=== PATIENT | female | born 1980 | race Caucasian/White ===

== ENCOUNTER 2024-08-11 16:22 | Emergency (ER) | payer OTHER, SELFPAY ==
[2024-08-11 16:28] VITALS: BP 98/70
--- NOTE | 2024-08-11 17:48 | ED.GENMED ---
History of Present Illness
General
Chief Complaint: Musculo-Skeletal Complaint
Source: patient
Exam Limitations: none
Time Seen by Provider: 08/11/24 17:45
Nursing documentation reviewed up to this point in time: agreed with
History of Present Illness
History of Present Illness:
This is a 43 y/o female with past medical history of psoriatic arthritis presents emergency department with left arm pain left shoulder pain. Patient states that she is not able to fully to her left shoulder without significant pain. She also
feels generalized pain in her left arm. She denies any chest pain or shortness of breath. She states that she has had similar pain in the past but is gone away on its own. She also notes right knee pain. Patient denies any difficulty ambulating,
denies any weakness. Patient states she took Advil at home with minimal improvement. Patient states that she has a follow-up with her sausage machine operator next week. Patient denies any rashes over the left arm or left shoulder. Patient denies any
fevers or chills. Patient did not fall, patient has no trauma to the area
Past History
Past History
ED Past Medical History: None
ED Past Surgical History: None
Social History
Tobacco: Non-smoker
Personal: Single
Living: with roommate
Employment: Employed
Review of Systems
Review of Systems
All Other Systems: ROS reviewed and negative except as documented in HPI and ROS
Phy Exam
Physical Exam
Physical Exam:
General: Patient is well appearing and in no acute distress; non-toxic
Skin: Warm and dry, no rashes or lesions
Head: Normocephalic, atraumatic
Eyes: Sclera non-icteric. EOMs intact.
Cardiac: Regular rate and rhythm, no murmurs
Peripheral Vascular: No lower extremity swelling or swelling
Pulm: Normal respiratory effort
Musculoskeletal: Tenderness palpation of the left biceps and left triceps. No palpable mass to the left upper extremity. Pain in shoulder with passive range of motion
Neuro: CN II-XII intact, no focal neurologic deficits.
Psychiatric: Appropriate mood and affect.
Course
Orders/Labs/Results
Orders:
Orders
08/11/24 16:34
CR Knee- Right 4 Or More View* Urgent
Comment:
Reason For Exam: pain
CR Shoulder - Left Min 2 View* Urgent
Reason For Exam: pain
08/11/24 18:44
Electrocardiogram (*1) Urgent
Reason for Study: Other
Other Reason for Exam: left shoulder pain
EKG- Treatment ONCE
Vital Signs
Initial and Last Documented VS:
Initial Vital Signs
Temp Pulse Resp BP Pulse Ox
98.4 F 94 18 98/70 100
08/11/24 16:28 08/11/24 16:28 08/11/24 16:28 08/11/24 16:28 08/11/24 16:28
Last Documented Vital Signs
Temp Pulse Resp BP Pulse Ox
98.4 F 94 18 98/70 100
08/11/24 16:28 08/11/24 16:28 08/11/24 16:28 08/11/24 16:28 08/11/24 16:28
MDM/Problems Addressed
Differential Diagnosis Includes:
See below
MDM/Problems Addressed:
NUMBER AND COMPLEXITY OF PROBLEMS ADDRESSED AT THE ENCOUNTER
� Chronic conditions affecting care: none
� Acute Exacerbation and/or Progression of Chronic Illness:
� Differential Diagnosis includes: Flare of psoriatic arthritis, ACS, musculoskeletal sprain/strain
AMOUNT AND/OR COMPLEXITY OF DATA TO BE REVIEWED AND ANALYZED
� I performed an independent evaluation of and my interpretation is:
EKG: normal sinus rhythm no ischemic changes
X-rays: No acute bony abnormalities
Laboratory Studies: no lab work indicated at this time
Other:
� Review of other/old records: Reviewed previous ER physician documentation from 10/18/2018, patient seen for back pain, likely overuse injury
� Clinical information was obtained by an independent historian: none
� Prescriptions/Medications Considered but not given: none
� Further testing considered but not performed:
RISK OF COMPLICATIONS AND/OR MORBIDITY OR MORTALITY OF PATIENT MANAGEMENT
� Social determinants of health affecting care: none
� Discussion with other providers: ER attending
� Escalation of care including admission/observation vs risk of discharge considered:
43-year-old female with past medical history of psoriatic arthritis presents emergency department with left upper extremity pain. She denies any chest pain or shortness of breath. X-rays reveal no acute bony abnormality. Suspect possible flare of
psoriatic arthritis, will put patient on a short course of steroids, patient has a follow-up appoint with her prior sausage machine operator next week, I discussed that she should be reassessed next week. Patient has no chest pain however in light of left
upper extremity pain, did get the EKG which shows no concerning ischemic changes, will hold off on Trope for now. Did review case with my ER attending, patient stable for discharge.
*Critical Care Note
Total Time (30-74mins, 75-104mins- exclusive of procedures): Not Applicable
ED Attending Note
-
Portions of this chart may have been created with voice recognition software.� Occasional wrong word or��sound alike� substitutions may have occurred due to the inherent limitations of voice recognition software.
Discharge Plan
Departure
Patient Disposition: Home (Routine Discharge)
Date of Disposition: 08/11/24
Time of Disposition: 19:49
Patient with high blood pressure during this ER visit?: No
Condition: Good
Discharge Problem:
Shoulder pain, left, Arm pain
Instructions: Shoulder Sprain
Prescriptions:
New
methylprednisolone [Medrol (Jose)] 4 mg tablets,dose pack
See Rx Instructions .ROUTE .COMPLEX Qty: 21 0RF
Rx Instructions:
orally per package directions
No Action
ibuprofen 800 MG tablet
800 mg PO TID Qty: 21 0RF
Referrals:
Judah Crowell MD [Family Provider] -
Activity Restrictions/Additional Instructions:
Medrol dose pack has been sent to your pharmacy. Please follow up with your sausage machine operator next week to assess response to treatment and to see if any further testing is indicated.
Your EKG is normal.
PLEASE RETURN TO THE EMERGENCY DEPARTMENT SHOULD YOU EXPERIENCE CHEST PAIN, SHORTNESS OF BREATH, NAUSEA AND VOMITING, FAINTING SPELLS, SYNCOPAL EPISODES, DIZZINESS, LOSS OF SENSATION IN YOUR ARM, PALLOR, OR ANY OTHER SIGNS OR SYMPTOMS WORRISOME TO
YOU.
Interventions
Interventions:
*Risk Screen - Suicide Last Done: 08/11/24 16:28
*General Assessment Last Done: 08/11/24 16:28
*Neglect/Abuse Screening Last Done: 08/11/24 16:28
*ED COVID-19 Vaccine History Last Done: 08/11/24 16:33
*Nursing Disposition Last Done: 08/11/24 19:20
ED-Musculoskeletal Assessment Last Done: 08/11/24 18:31
Discharge Date and Time
Discharge Date/Time: 08/11/24 19:54
Print Language: [id number]
== END 2024-08-11 19:54 | disposition home or self-care (01) ==
LOC: EMR 16:22
PROVIDERS: EMERGENCY PHYSICIAN Emergency Medicine; FAMILY PHYSICIAN Internal Medicine
DX: M25.512 Pain in left shoulder (principal); L40.50 Arthropathic psoriasis, unspecified
CPT/HCPCS: 99283; 73030; 73564; 93005